=== PATIENT | female | born 1965 | race Caucasian/White ===

== ENCOUNTER 2024-03-17 21:17 | Emergency (ER) | payer BC, SELFPAY ==
[2024-03-17 21:17] VITALS: BP 147/94; PULSE 81; RESP 16; TEMP 36.8; O2SAT 97; BMI 30.5
[2024-03-17 21:35] LABS: Mucous, Urine 0 SEEN /hpf (<or=2+)
[2024-03-17 21:39] LABS: Color, Urine Amber (Yellow); Glucose, Dipstick Normal (Normal); Ketone-Dipstick Negative (Negative); Leukocyte Esterase-Dipstick 500 /ul (Negative); Nitrite-Dipstick Positive (Negative); Occult Blood-Urine 10 /ul (Negative); Protein-Dipstick Negative (Negative); Urine Clarity Sl. Cloudy (Clear); Urine Urobilinogen 4 mg/dl (Normal); Urine pH 6.5 (5.0 - 8.0)
[2024-03-17 21:41] LABS: Urine Bilirubin Dipstick 3 mg/dL (Negative)
[2024-03-17 21:57] LABS: Bacteria RARE /hpf (None Seen); Red Blood Cells-Urine 0-5 SEEN /hpf (0-5); Squamous Epithelial Cells - UA 0-5 SEEN /hpf (5-10); White Blood Cells 10-25 SEEN /hpf (0-5)
--- NOTE | 2024-03-17 22:51 | EDS_ITS ---
HPI History of Present Illness Chief Complaint: Complaint Informant: patient Narrative Narrative: Patient is a 59-year-old female he reports history of recurrent urinary tract infections when she was younger. She states she has been doing well for the last few years but roughly 1 to 2 hours prior to arrival noted she was having increased frequency of urination with dysuria. She denies any vaginal discharge or concern for STD. She states has been no fevers or chills. She states this feels similar nature to her past UTIs and secondary to this comes in for evaluation [facility] Medical History (Updated 03/17/24 @ 22:[address] Alfredo Moya, DO) Urinary tract infection Home Medications ?Medication ?Instructions ?Recorded ?Last Taken ?Type cephalexin 500 mg capsule 500 mg PO TID 7 days #21 caps 03/17/24 Unknown Rx phenazopyridine 200 mg tablet 200 mg PO TID 2 days #6 tabs 03/17/24 Unknown Rx (Pyridium) Allergy/AdvReac Type Severity Reaction Status Date / Time No Known Allergies Allergy Verified 03/17/24 21:19 Social History Smoking Status: Never smoker ROS [facility] ED Constitutional Constitutional ED: Denies chills or fever(s) ENT ENT ED: Denies sore throat Cardiovascular Cardiovascular: Denies chest pain Respiratory/Chest Respiratory/Chest: Denies cough or dyspnea Gastrointestinal Gastrointestinal: Reports abdominal pain; Denies diarrhea, nausea or vomiting Genitourinary Genitourinary ED: Reports dysuria and urinary frequency; Denies hematuria Musculoskeletal Musculoskeletal: Reports back pain Integumentary Denies rash Neurologic Neurologic: Denies headache(s) Hematologic/Lymphatic Hematologic/Lymphatic: Denies easy bleeding or easy bruising EXAM Physical Exam Const Vital Signs: 03/17/24 21:17 03/17/24 23:11 03/17/24 23:17 Temperature 98.2 F 98.2 F Temperature Source Oral Pulse Rate 81 81 70 Respiratory Rate 16 16 16 Blood Pressure 147/94 H 147/94 H Blood Pressure Mean 111 111 Pulse Ox 97 97 98 Oxygen Delivery Method Room Air Room Air Positive well nourished and well developed General Appearance ED: well developed; Negative for pallor HEENT HEENT Narrative: Normocephalic atraumatic Eyes PERRL and EOMs intact bilaterally General Eye ED: Negative for scleral icterus Neck supple Resp normal respiratory effort and clear to auscultation bilaterally Cardio regular rate and regular rhythm GI non-distended and no masses GI Narrative: There is tenderness to palpation in the suprapubic region without organomegaly to suggest urinary retention and no voluntary guarding or rigidity or pulsatile mass Auscultation: normoactive bowel sounds Palpation: soft Back/Spine no CVA tenderness Extremity normal to inspection Neuro oriented x3, CN's II-XII intact bilaterally and no sensory deficits noted Sensorium / Orientation: alert Motor Exam: strength 5/5 throughout Psych mental status grossly normal Skin no rashes or lesions noted General Skin Exam: Negative for jaundice or pallor MDM MDM MDM Narrative Medical decision making narrative: Patient arrived to the ER mildly hypertensive otherwise with stable vitals. She reported a few hours of urinary frequency and dysuria. She had low concern for STD and denied any systemic symptoms going against pyelonephritis or urosepsis. Therefore I felt no need for testing other than a urine sample. Urine sample showed changes consistent with infection as it was nitrite positive with 10-25 white cells and positive bacteria. The urine to be sent for culture to ensure she is on the proper antibiotic and should be started on Keflex secondary to the infectious process. However without signs of systemic infection or urosepsis there is no need for admission and she is otherwise safe for discharge History & Record Review Discussion w/independent historian: Patient Lab Data Attestation: I reviewed the patient's lab results. Labs: Laboratory Results - last 24 hr 03/17/24 21:20 Urine Color Amara Urine Clarity Sl. Cloudy Urine pH 6.5 Ur Specific [place] 1.010 Urine Protein Negative Urine Glucose (UA) Normal Urine Ketones Negative Urine Occult Blood 10 H Urine Nitrite Positive H Urine Bilirubin 3 H Urine Urobilinogen 4 H Ur Leukocyte Esterase 500 H Urine RBC 0-5 SEEN Urine WBC 10-25 SEEN Ur Squamous Epith Cells 0-5 SEEN Urine Bacteria RARE Urine Mucus 0 SEEN Discharge Plan Triage Chief Complaint: Complaint ED Provider: Alfredo Moya Dx/Rx/DC Orders Clinical Impression: UTI (urinary tract infection) Instructions: Urinary Tract Infections in Women Prescriptions: New cephalexin 500 mg capsule 500 mg PO TID 7 Days Qty: 21 0RF phenazopyridine [Pyridium] 200 mg tablet 200 mg PO TID 2 Days Qty: 6 0RF Primary Care Provider: [facility] Doctor,Out of Referrals: [facility] Doctor,Out of [Primary Care Provider] - Activity Restrictions/Additional Instructions: Please take the antibiotic as directed to resolve your infection and return to the ER should you have any further concerns or worsening of symptoms. It would typically take 48 hours for the antibiotic to take effect Print Language: Indian Disposition Disposition: Home, Self Care Discharge Date/Time: 03/17/24 23:41
[2024-03-17 23:11] VITALS: BP 147/94; PULSE 81; RESP 16; TEMP 36.8; O2SAT 97
[2024-03-17] MEDS: Cephalexin 250 MG Capsule 500 MG PO (23:13)
[2024-03-17] MEDS: Phenazopyridine 95 MG Tablet 190 MG PO (23:14)
[2024-03-17 23:17] VITALS: PULSE 70; RESP 16; O2SAT 98
== END 2024-03-17 23:41 | disposition home or self-care (01) ==
PROVIDERS: Emergency Provider Emergency Medicine; Visit Provider Emergency Medicine
DX: N39.0 Urinary tract infection, site not specified (principal)
CPT/HCPCS: 81001; 87077; 87086; 87088; 87186; 99282